=== PATIENT | male | born 1990 | race Asian ===

== ENCOUNTER 2024-08-01 10:39 | Emergency (ER) | payer BC, SELFPAY ==
[2024-08-01 10:41] VITALS: BP 139/102
--- NOTE | 2024-08-01 11:07 | ED.GENMED ---
History of Present Illness
General
Chief Complaint: Musculo-Skeletal Complaint
Source: patient
Time Seen by Provider: 08/01/24 10:47
History of Present Illness
History of Present Illness:
33yoM with no significant past medical history presenting for evaluation of right hip and thigh pain. Patient had similar pains a few months ago which did not improve with physical therapy. He was seen by orthopedics was treated with
anti-inflammatories with improvement. X-rays at that time were normal. Patient was doing well for a few months. He was cleaning out the garage 2 days ago and symptoms are now worsening. He denies any direct trauma. The pain is located in the
anterior and lateral right thigh. He is unable to bear weight without significant pain. He has been taking 4 Aleve daily and has tried Voltaren gel without any improvement. He was unable to get an orthopedic appt until next week. No paresthesias or
fevers. He is voiding normally.
Orthopedic note from 05/03/24 reviewed. Symptoms were thought to be from trochanteric pain syndrome wither due to gluteal tendinopathy or tensor fascia zahraa syndrome. Plan was for steroid injection and possible MRI if symptoms failed to improve.
Phy Exam
Physical Exam
Physical Exam:
Appears uncomfortable
General Physical Exam
General Presentation: well appearing
General age: appears stated age
General Skin: warm and dry
General Habitus: normal
General Mental: alert
ENT Exam
ENT Exam: normocephalic
Pulmonary Exam
Pulmonary Exam: no respiratory distress
Musculoskeletal Exam
Musculoskeletal Exam: other (R hip: Normal to inspection. +Tenderness to anterior and lateral hip. ROM decreased 2/2 pain. Patient unable to get into a comfortable position during exam. No pitting edema or clinical signs of DVT. 2+ DP pulse and
sensation intact. )
Skin Exam
Skin Exam: normal color and warm/dry
Psychiatric Exam
Psychiatric Exam: normal mood/affect
Course
Orders/Labs/Results
Orders:
Orders
08/01/24 11:02
Acetaminophen [Tylenol] 1,000 mg PO NOW STA
Ketorolac [Toradol] 30 mg IM NOW STA
diazePAM [Valium Injection] 5 mg IM NOW STA
CR Femur - Right Min 2 Vw Urgent
Comment:
Reason For Exam: Pain
CR Pelvis - 1 Or 2 Views Urgent
Reason For Exam: pain
Vital Signs
Initial and Last Documented VS:
Initial Vital Signs
Temp Pulse Resp BP Pulse Ox
99.0 F 105 16 139/102 98
08/01/24 10:41 08/01/24 10:41 08/01/24 10:41 08/01/24 10:41 08/01/24 10:41
Last Documented Vital Signs
Temp Pulse Resp BP Pulse Ox
99.0 F 89 16 135/89 99
08/01/24 10:41 08/01/24 12:20 08/01/24 12:20 08/01/24 12:20 08/01/24 12:20
MDM/Problems Addressed
Differential Diagnosis Includes:
33yoM here with R hip pain after cleaning the garage 2 days ago. Previously seen by orthopedics 3 months ago and diagnosed with trochanteric pain syndrome. No paresthesias. VSS. R hip appears normal on exam. There is reproducible tenderness to the
anterior and lateral thigh. RLE is neurovascularly intact. Differential diagnosis includes but is not limited to: bursitis, femoral impingement syndrome, muscular strain, doubt fracture
Initial ED plan: Check right hip and femur x-rays. IM Toradol, Valium, Tylenol for pain.
*Critical Care Note
Total Time (30-74mins, 75-104mins- exclusive of procedures): Not Applicable
Update Note
Update Note:
X-rays negative for fracture. 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 He was started on a course of prednisone. He has an appt tomorrow with his
PCP and orthopedics next week. He was discharged in stable condition.
ED Attending Note
-
Portions of this chart may have been created with voice recognition software.� Occasional wrong word or��sound alike� substitutions may have occurred due to the inherent limitations of voice recognition software.
Discharge Plan
Departure
Patient Disposition: Home (Routine Discharge)
Date of Disposition: 08/01/24
Time of Disposition: 12:02
Patient with high blood pressure during this ER visit?: No
Discharge Problem:
Pain of right hip
Instructions: Hip Pain ED
Prescriptions:
New
prednisone 50 mg tablet
50 mg PO DAILY Qty: 5 0RF
Referrals:
Deborah Khan I., DO [Active] -
Jayshree Streeter, DO [Family Provider] -
Activity Restrictions/Additional Instructions:
Apply heat to affected area. Take prednisone as prescribed. Continue taking Aleve. You may also take Tylenol 650mg every 6 hours as needed.
Please follow-up with your family doctor and orthopedics.
Interventions
Interventions:
*Risk Screen - Suicide Last Done: 08/01/24 10:41
*General Assessment Last Done: 08/01/24 11:00
*Neglect/Abuse Screening Last Done: 08/01/24 10:41
ED- Fall Risk Assessment Last Done: 08/01/24 12:21
*ED COVID-19 Vaccine History Last Done: 08/01/24 11:00
*Nursing Disposition Last Done: 08/01/24 12:21
ED-Musculoskeletal Assessment Last Done: 08/01/24 11:00
Discharge Date and Time
Discharge Date/Time: 08/01/24 12:21
Print Language: NAMIBIAN
[2024-08-01] MEDS: VALIUM INJECTION 5 MG IM (11:12)
[2024-08-01] MEDS: TYLENOL 1000 MG PO (11:12)
[2024-08-01] MEDS: TORADOL 30 MG IM (11:13)
[2024-08-01 12:20] VITALS: BP 135/89
== END 2024-08-01 12:21 | disposition home or self-care (01) ==
LOC: EMR 10:39
PROVIDERS: EMERGENCY PHYSICIAN Emergency Medicine; FAMILY PHYSICIAN Internal Medicine
DX: M25.551 Pain in right hip (principal); M79.651 Pain in right thigh
CPT/HCPCS: 99283; 96372; 72170; 73552